=== PATIENT | male | born 1975 | race Caucasian/White ===

== ENCOUNTER 2024-03-07 18:26 | Emergency (ER) | payer BC ==
[~2024-03-07] VITALS: Ht 170.2 cm; Wt 95.3 kg
[2024-03-07 19:33] VITALS: PULSE 83; RESP 17; TEMP 97.9; O2SAT 99
[2024-03-07] MEDS ORDERED: MEDROL4 M2 PO (20:54)
== END 2024-03-07 21:12 | disposition home or self-care (01) ==
LOC: ER 19:12
DX: M25.561 Pain in right knee (principal); M25.461 Effusion, right knee; X50.1XXA Overexertion from prolonged static or awkward postures, initial encounter; Y92.89 Other specified places as the place of occurrence of the external cause; L40.50 Arthropathic psoriasis, unspecified; F32.A Depression, unspecified
CPT/HCPCS: 99283